=== PATIENT | male | born 1980 | race Caucasian/White ===

== ENCOUNTER 2018-09-05 09:51 | Day surgery (SDC) | payer OTHER | END 2018-09-05 17:45 | disposition home or self-care (01) | LOC: CIR.AMB 09:51 | DX: C49.10 Malignant neoplasm of connective and soft tissue of unspecified upper limb, including shoulder (principal) ==

== ENCOUNTER 2020-09-23 05:45 | Day surgery (SDC) | payer OTHER ==
[~2020-09-23 05:45] MED LIST: LEVOTHYROXINE25 MCG PO
== END 2020-09-23 13:43 | disposition home or self-care (01) ==
LOC: CIR.AMB 05:45 → LAB 09:30 → CIR.AMB 13:43
PROVIDERS: ATTEND Orthopaedic Surgery Hand Surgery
DX: D17.22 Benign lipomatous neoplasm of skin and subcutaneous tissue of left arm (principal); Z20.828 Contact with and (suspected) exposure to other viral communicable diseases